=== PATIENT | female | born 1980 | race Caucasian/White ===

== ENCOUNTER 2023-05-20 19:38 | Emergency (ER) | payer MEDICAID ==
[~2023-05-20] VITALS: Ht 157.5 cm; Wt 77.1 kg
[~2023-05-20 19:38] MED LIST: AMLO5TAB PO
[2023-05-20 19:49] VITALS: BP 161/104; PULSE 90; RESP 16; TEMP 97.4; O2SAT 99
[2023-05-20] MEDS ORDERED: KETOROLAC 30 MG/ML VIAL IM ONE (22:30)
[2023-05-20] MEDS ORDERED: DEXAMETHASONE 10 MG/ML VIAL IM ONE (22:30)
[2023-05-20 22:58] VITALS: BP 142/89; PULSE 84; RESP 16; TEMP 97.4; O2SAT 99
== END 2023-05-20 22:58 | disposition home or self-care (01) ==
LOC: MED 19:38
DX: J06.9 Acute upper respiratory infection, unspecified (principal); Z79.899 Other long term (current) drug therapy
CPT/HCPCS: 71046; 96372; 99284; J1100; J1885